=== PATIENT | male | born 1960 | race Native Hawaiian/Other Pacific Islander ===

== ENCOUNTER 2020-09-12 15:06 | Emergency (ER) | payer OTHER ==
[~2020-09-12] VITALS: Ht 177.8 cm; Wt 123.8 kg
[2020-09-12 15:59] LABS: PLATELET COUNT 311 K/uL (142-355)
[2020-09-12 16:10] LABS: POTASSIUM 4.3 mmol/L (3.6-5.2)
[2020-09-12 18:31] VITALS: BP 118/71; TEMP 98.2
== END 2020-09-12 18:31 | disposition short-term general hospital (02) ==
LOC: ED 15:06
PROVIDERS: Family Medicine
PROC: 0T9B70Z Drainage of Bladder with Drainage Device, Via Natural or Artificial Opening (ICD-10-PCS; principal; 2020-09-12)
DX: N13.8 Other obstructive and reflux uropathy (principal); Z11.52 Encounter for screening for COVID-19
CPT/HCPCS: 80053; 81000; 85027; 87635; 99283; 99284; U0003

== ENCOUNTER 2021-07-22 14:42 | Outpatient (CLI) | payer OTHER | END 2021-07-22 19:07 | disposition home or self-care (01) | LOC: LAB 14:42 | PROVIDERS: ATTEND Internal Medicine Gastroenterology | DX: K64.0 First degree hemorrhoids (principal) | CPT/HCPCS: 82272 ==

== ENCOUNTER 2021-07-25 12:41 | Outpatient (CLI) | payer OTHER | END 2021-07-25 21:24 | disposition home or self-care (01) | LOC: CT 12:41 | PROVIDERS: ATTEND Specialist | DX: R31.29 Other microscopic hematuria (principal) ==